=== PATIENT | male | born 1975 | race Asian ===

== ENCOUNTER 2024-08-28 20:17 | Emergency (ER) | payer OTHER ==
[~2024-08-28] VITALS: Ht 172.7 cm; Wt 81.6 kg
[2024-08-28] MEDS ORDERED: ACETAMINOPHEN 325 MG TABLET ONE (21:19)
[2024-08-28] MEDS ORDERED: KETOROLAC TROMETHAMINE INJ 30 MG/ML VIAL ONE (21:19)
[2024-08-28] MEDS: KETOROLAC TROMETHAMINE INJ 30 MG/ML VIAL IM ONE (21:42)
[2024-08-28] MEDS: ACETAMINOPHEN 325 MG TABLET PO ONE (21:42)
[2024-08-28 23:27] VITALS: BP 140/76; TEMP 98.4; O2SAT 100
== END 2024-08-28 23:27 | disposition home or self-care (01) ==
LOC: ER 20:30
DX: M79.672 Pain in left foot (principal); Z60.2 Problems related to living alone
CPT/HCPCS: 99285; 93971; 96372; 73630; J1885